=== PATIENT | male | born 1955 | race Caucasian/White ===

== ENCOUNTER 2019-08-09 18:52 | Emergency (ER) | payer MEDICAID ==
[~2019-08-09] VITALS: Ht 172.7 cm; Wt 90.0 kg
[2019-08-09] MEDS ORDERED: LOPERAMIDE HCL 2MG CAPSULE PO ONE (22:45)
[2019-08-09] MEDS ORDERED: ALBUTEROL (0.083%) 2.5MG/3ML NEB HHN STA (22:48)
[2019-08-09] MEDS ORDERED: IPRATROPIUM BROMIDE (0.02%) 0.5MG/2.5ML NEB HHN STA (22:48)
[2019-08-10] MEDS ORDERED: KETOROLAC 60MG/2ML VIAL IM ONE (01:45)
[2019-08-10 02:48] VITALS: BP 128/74
== END 2019-08-10 02:50 | disposition home or self-care (01) ==
LOC: ER 18:52
DX: J40 Bronchitis, not specified as acute or chronic (principal); B34.9 Viral infection, unspecified; E11.9 Type 2 diabetes mellitus without complications; I10 Essential (primary) hypertension; J44.9 Chronic obstructive pulmonary disease, unspecified
CPT/HCPCS: 71045; 94640; 96372; 99283; J1885; J7611; Z7610

== ENCOUNTER 2021-08-11 21:27 | Emergency (ER) | payer OTHER ==
[~2021-08-11] VITALS: Ht 180.3 cm; Wt 100.0 kg
[2021-08-11] MEDS ORDERED: METHYLPREDNISOLONE SOD SUCC 125 MG/2 ML VIAL IV STA (22:21)
[2021-08-11] MEDS ORDERED: ALBUTEROL (0.083%) 2.5MG/3ML NEB HHN STA (22:21)
[2021-08-11] MEDS ORDERED: IPRATROPIUM BROMIDE (0.02%) 0.5MG/2.5ML NEB HHN STA (22:21)
[2021-08-11 23:52] LABS: BASOPHILS % 0.8 % (0.0-2.0); EOSINOPHILS % 4.4 % (0.0-5.0); HEMATOCRIT. 45.4 % (42.0-52.0); HEMOGLOBIN. 15.7 g/dL (14.0-18.0); LYMPHOCYTES % 34.5 % (20.0-50.0); MEAN CORPUSCULAR HEMOGLOBIN 30.2 pg (28.0-32.0); MEAN CORPUSCULAR VOLUME 87.3 fL (80.0-94.0); MEAN PLATELET VOLUME 7.3 fl (7.4-10.4); MONOCYTES % 8.2 % (2.0-8.0); NEUTROPHILS % 52.1 % (40.0-76.0); PLATELET 259 x1000/uL (130-400); RED CELL DISTRIBUTION WIDTH 12.9 % (11.6-14.6)
[2021-08-11 23:59] LABS: CHLORIDE 105 mEq/L (98-107)
[2021-08-12] MEDS ORDERED: ALBU6.7H9 INH (01:12)
[2021-08-12] MEDS ORDERED: P20 MT (01:13)
[2021-08-12 01:55] VITALS: BP 118/79
== END 2021-08-12 02:03 | disposition home or self-care (01) ==
LOC: ER 21:27
DX: J44.1 Chronic obstructive pulmonary disease with (acute) exacerbation (principal)
CPT/HCPCS: 36415; 71045; 80053; 85025; 93005; 94644; 96374; 99285; Z7610